=== PATIENT | female | born 1995 | race Caucasian/White ===

== ENCOUNTER 2017-12-12 18:46 | Emergency (ER) | payer BC ==
[~2017-12-12] VITALS: Ht 160 cm; Wt 51.7 kg
[~2017-12-12 18:46] MED LIST: [UNRECOGNIZED DRUG - OTHER] PO
[2017-12-12 18:50] VITALS: TEMP 36.5; Ht 160 cm; Wt 51.7 kg
[2017-12-12] MEDS ORDERED: ALUMINUM/MAGNESIUM SUSP 30 ML UDC PO STA (19:15)
[2017-12-12] MEDS ORDERED: FAMOTIDINE 20 MG TAB PO ONE (19:15)
[2017-12-12] MEDS ORDERED: LIDOCAINE HCL 2% VISC SOLN 20 ML UDC PO STA (19:15)
--- NOTE | 2017-12-12 19:42 | DIAGNOSTIC IMAGING REPORT ---
CHEST ONE VIEW PORTABLE CLINICAL HISTORY: Chest pain. COMPARISON STUDY: Chest radiograph December 04, 2014. FINDINGS: Lung volumes are normal. No pneumothorax or pleural effusion is identified. Pulmonary vascularity is normal. Cardiomediastinal silhouette is unremarkable. Note is made of a large amount stool within visualized portions of the colon. IMPRESSION: 1. No acute cardiopulmonary findings. 2. Large amount of stool within visualized portions of the colon. Electronically signed by: Adal Arellano M.D. 12/12/2017 7:41 PM Dictated Date/Time: 12/12/2017 7:40 PM
[2017-12-12] MEDS ORDERED: FAMO20TA9 PO (20:02)
--- NOTE | 2017-12-12 20:03 | EMERGENCY ROOM VISIT NOTE ---
History Report prepared by Junior: Robi Strickland Under the Supervision of: Dr. Chad Soliz D.O. First contact with patient: 18:55 Chief Complaint: OTHER COMPLAINT Stated Complaint: CHEST PAIN, HURTS SWALLOWING, CRAMPING, NAUSEA History of Present Illness The patient is a 22 year old female who presents to the Emergency Room with complaints of worsening chest pain that started over a week ago. She states that she has Celiac disease. The patient notes that 2 weeks ago she saw her train driver, and was put on Doxycycline to clear up her skin. However, she says that she does not normally take antibiotics due to her Celiac. She states that she started taking the antibiotic, and after a few days, she started noticing some chest pain especially when working out. The patient states that she has also recently been started on control. She says that she saw her EMPLOYMENT ASSISTANT a few days ago and had a breast exam, which did not show anything abnormal. The patient adds that a few days ago, the pain started worsening, especially upon waking or eating. She states that yesterday and today, she has hardly been able to eat due to the pain. She says that it hurts to swallow today , and she can't even swallow water. The patient describes her pain as a cramping pain. She denies any rashes. Source of History: patient Onset: Over a week ago Position: chest Symptom Intensity: can't even swallow water due to pain Quality: cramping, other (pain) Timing: worsening Modifying Factors (Worsening): exertion, eating Associated Symptoms: No rash Note: Hurts to swallow. No other associated symptoms noted. Review of Systems See HPI for pertinent positives & negatives. A total of 10 systems reviewed and were otherwise negative. Past Medical & Surgical Medical Problems: (1) Anxiety (2) Celiac disease Family History Cancer Diabetes mellitus Hypertension Social History Smoking Status: Never Smoker Alcohol Use: occasionally Drug Use: marijuana Housing Status: lives with roommate Occupation Status: [employer] student Current/Historical Medications Scheduled Famotidine (Pepcid), 1 TAB PO BID [Isotonics], 1 DOSE PO DAILY Allergies Coded Allergies: Gluten (Unverified Allergy, Unknown, GI ISSUES, 07/30/16) Physical Exam Vital Signs Date Time Temp Pulse Resp B/P (MAP) Pulse Ox O2 Delivery O2 Flow Rate FiO2 12/12/17 20:10 61 18 116/72 97 12/12/17 18:50 36.5 67 18 120/82 97 Room Air Physical Exam CONSTITUTIONAL/VITAL SIGNS: Reviewed / noted above. GENERAL: Non-toxic in appearance. INTEGUMENTARY: Warm, dry, and [place]. HEAD: Normocephalic. EYES: without scleral icterus or trauma. ENT/OROPHARYNX: clear and moist. LYMPHADENOPATHY/NECK: Is supple without lymphadenopathy or meningismus. RESPIRATORY: Lungs clear and equal. CARDIOVASCULAR: Regular rate and rhythm. GI/ABDOMEN: Soft and nontender. No organomegaly or pulsatile mass. No rebound or guarding. Normal bowel sounds. EXTREMITIES: Warm and well perfused. BACK: No CVA tenderness. NEUROLOGICAL: Intact without focal deficits. PSYCHIATRIC: normal affect. MUSCULOSKELETAL: Normally developed with good muscle tone. Medical Decision & Procedures Medications Administered Medications (Trade) Dose Ordered Sig/[place] Route Start Time Stop Time Status Last Admin Dose Admin Al Hydroxide/Mg Hydroxide (Maalox Susp) 30 ml NOW STAT PO 12/12/17 19:15 12/12/17 19:17 DC 12/12/17 19:23 30 ML Lidocaine HCl (Viscous Lidocaine 2% Soln) 10 ml NOW STAT PO 12/12/17 19:15 12/12/17 19:17 DC 12/12/17 19:23 10 ML Famotidine (Pepcid Tab) 20 mg NOW ONCE PO 12/12/17 19:15 12/12/17 19:17 DC 12/12/17 19:23 20 MG ED Course 185: Previous medical records were reviewed. The patient was evaluated in room A3. A complete history and physical examination was performed. 1914: Pepcid Tab 20 mg PO, Viscous Lidocaine 2% Soln 10 ml PO, Maalox Susp 30 ml PO. 1999: On reevaluation, the patient is resting comfortably. I discussed the results and findings with the patient. She verbalized agreement of the treatment plan. She was discharged home. Medical Decision Differentials considered include acute myocardial infarction, acute coronary syndrome, myocarditis, pericarditis, pericardial effusions /tamponade, esophageal perforation, thoracic aortic dissection, pulmonary embolism, pneumonia, pneumothorax, pancreatitis, shingles, acute cholecystitis, and perforated abdominal viscus. This is a 22-year-old female who presents to the ED with a chief complaint of chest discomfort. The patient states that it seems to be worse with eating and drinking. She has recently been on doxycycline for acne. She has been taking this for the past couple of weeks. The patient also reports history of celiac disease. Her vital signs are normal. Her physical exam was unremarkable. The patient was given a GI cocktail as well as oral Pepcid. A chest x-ray did not show acute process. There is some evidence of constipation. The patient's symptoms appear to be in the central chest and vertical nature and are likely related to some esophageal irritation or reflux. She will be discharged on Pepcid. She was told to follow-up with her PCP or [facility] and possibly GI referral if symptoms persist. She will return for sentiment worsening or new concerns. Medication Reconcilliation Current Medication List: was personally reviewed by me Blood Pressure Screening Patient's blood pressure: Normal blood pressure Impression Primary Impression: Reflux esophagitis Scribe Attestation The scribe's documentation has been prepared under my direction and personally reviewed by me in its entirety. I confirm that the note above accurately reflects all work, treatment, procedures, and medical decision making performed by me. Departure Information Dispostion Home / Self-Care Prescriptions Famotidine (PEPCID) 20 Mg Tab 1 TAB PO BID for 30 Days, #60 TAB 1 Refill Prov: Chad Soliz D.O. 12/12/17 Referrals Enrrique Caban D.O. (PCP) Patient Instructions My [facility] Additional Instructions Follow-up with your doctor for further care and evaluation in 1-2 days. Return to the emergency department for worsening or new symptoms or any concerns. You have been examined and treated today on an emergency basis only. This is not a substitute for, or an effort to provide, complete comprehensive medical care. It is impossible to recognize and treat all injuries or illnesses in a single emergency department visit. It is therefore important that you follow up closely with your doctor. Call as soon as possible for an appointment. Pepcid as prescribed. Follow-up with your doctor or [facility] for GI referral if symptoms persist.
[2017-12-12 20:10] VITALS: BP 116/72; PULSE 61; O2SAT 97
== END 2017-12-12 20:12 | disposition home or self-care (01) ==
LOC: C.EDB 18:48 → C.EDA 20:12
DX: K21.0 Gastro-esophageal reflux disease with esophagitis (principal); F41.9 Anxiety disorder, unspecified; K90.0 Celiac disease; Z79.3 Long term (current) use of hormonal contraceptives; Z83.3 Family history of diabetes mellitus; Z82.49 Family history of ischemic heart disease and other diseases of the circulatory system